=== PATIENT | male | born 1995 | race Two or more races ===

== ENCOUNTER 2022-07-07 10:46 | Emergency (ER) | payer MEDICAID ==
[~2022-07-07] VITALS: Ht 175.3 cm; Wt 122.0 kg
--- NOTE | 2022-07-07 11:15 | NUR ---
RASH THAT STARTED IN HIS FEET SPREAD TO BILAT HANDS, FACE AND AT BACK X 48 HRS. STARTED AMOXICILLIN AND PREDNISONE YESTERDAY.
[2022-07-07] MEDS ORDERED: FAMOTIDINE/PF INJ 20 MG/2 ML VIAL IV ONE ×2 (13:00→13:16)
[2022-07-07] MEDS ORDERED: methylPREDNISolone SOD SUCC 125 MG/2ML VIAL IV ONE (13:00)
[2022-07-07] MEDS ORDERED: diphenhydrAMINE HCL 50 MG/ML VIAL IV ONE (13:00)
--- NOTE | 2022-07-07 13:13 | NUR ---
IV HL at R AC G20, Blood Drawn and sent to lab.
[2022-07-07] MEDS ORDERED: diphenhydrAMINE HCL 50 MG/ML VIAL ONE (13:16)
[2022-07-07] MEDS ORDERED: methylPREDNISolone SOD SUCC 125 MG/2ML VIAL ONE (13:16)
[2022-07-07 13:23] LABS: BASOPHILS % (AUTO) 0.2 % (0.0-2.0); EOSINOPHILS % (AUTO) 0.1 % (0.0-6.0); HEMATOCRIT 45 % (39-51); LYMPHOCYTES # (AUTO) 1.5 K/uL (0.8-4.8); LYMPHOCYTES % (AUTO) 15.5 % (20.0-44.0); MEAN CORPUSCULAR HGB CONC 33 g/dl (31.0-36.0); MEAN CORPUSCULAR VOLUME 86 fL (80-96); MONOCYTES # (AUTO) 0.8 K/uL (0.1-1.30); MONOCYTES % (AUTO) 8.4 % (2.0-12.0); NEUTROPHILS # (AUTO) 7.5 K/uL (1.8-8.9); NEUTROPHILS % (AUTO) 75.8 % (43.0-81.0); PLATELET COUNT (AUTO) 279 K/uL (150-450); RED BLOOD CELL COUNT(AUTO) 5.25 MIL/uL (4.5-6.0); WHITE BLOOD COUNT (AUTO) 9.9 K/uL (4.3-11.0)
[2022-07-07] MEDS ORDERED: DOXY100C2 PO (14:10)
[2022-07-07 14:21] LABS: C-REACTIVE PROTEIN 5.4 mg/dL (0.0-0.9)
--- NOTE | 2022-07-07 15:00 | NUR ---
Note odell in EDM - 07/07/22 at 1506 by SHERLYN IV removed. Catheter intact and site benign. Pressure and 4x4 applied to site. No bleeding noted.
--- NOTE | 2022-07-07 15:00 | NUR ---
Note odell in EDM - 07/07/22 at 1506 by SHERLYN Patient does not wish to proceed with medical care recommended by Dr. Costello. Patient given information related to possible complications, up to and including , which could occur as a result of leaving the hospital at this time. Patient verbalizes understanding of risks involved due to leaving against medical advice. Patient has signed AMA form. [facility] Written and verbal after care instructions given. Patient verbalizes understanding of instruction.
[2022-07-07 15:16] LABS: CALCIUM, SERUM 9.2 mg/dL (8.5-10.1); POTASSIUM 3.5 mmol/L (3.5-5.1)
--- NOTE | 2022-07-07 15:47 | NUR ---
Patient discharged to home in stable condition. Written and verbal after care instructions given. Patient verbalizes understanding of instruction.
[2022-07-07 15:49] VITALS: BP 155/95
== END 2022-07-07 15:51 | disposition home or self-care (01) ==
LOC: ER 10:48
DX: R21 Rash and other nonspecific skin eruption (principal); Z79.899 Other long term (current) drug therapy
CPT/HCPCS: 99284; 96374; 96375; 85025; 80048; 85652; 36415; 86140; J1200; J3490; J2930